=== PATIENT | female | born 1980 | race Caucasian/White ===

== ENCOUNTER 2018-03-27 12:41 | Day surgery (SDC) | payer OTHER ==
[~2018-03-27] VITALS: Ht 162.6 cm; Wt 57.1 kg
[2018-03-27 13:11] VITALS: BP 115/72; PULSE 85; TEMP 98.5
[2018-03-27] MEDS ORDERED: PROAIR HFA0.09 MG/AC IH (13:29)
[2018-03-27] MEDS ORDERED: RT ADVAIR HFA 2312 G IH (13:30)
[2018-03-27 14:40] VITALS: BP 113/66; PULSE 62; TEMP 97.8
[2018-03-27 14:55] VITALS: BP 109/67; PULSE 54
[2018-03-27 15:10] VITALS: BP 103/78; PULSE 59
== END 2018-03-27 15:32 | disposition home or self-care (01) ==
LOC: SDCO 12:41
DX: K64.0 First degree hemorrhoids (principal); K59.09 Other constipation
CPT/HCPCS: OP; J2250; J3010; J7030